=== PATIENT | female | born 1950 | race Caucasian/White ===

== ENCOUNTER 2017-04-24 15:21 | Inpatient (IN) ==
[2017-04-24] MEDS ORDERED: SALINE FLUSH 10ml SYRINGE IVF PRN (15:33)
[2017-04-24] MEDS: NITROGLYCERIN 0.4 MG SUBLINGUAL TABLET SL PRN ×2 (15:43→16:17)
--- NOTE | 2017-04-24 16:10 | Emergency Department Report ---
Chest Pain HPI - General Chief Complaint: Chest Pain Stated Complaint: cp,soa Time Seen by Provider: 04/24/17 15:24 Source: patient, EMS, RN notes reviewed, old records reviewed, other (Pts oncologist) Mode of arrival: EMS Limitations: no limitations - History of Present Illness HPI narrative: 66yo woman presents to the ER by EMS today for evaluation of CP. Pt had abrupt onset of chest pain and SOA appx 30min prior to presentation. Pt has numerous comorbidities including hemolytic anemia, cold agglutinin, positive ANCA, and eosinophilic granulomatous disease (with vasculitis). Pt was given her first dose of Rituxin today (100mg) around 1300 today. Pt then drove home to [place], but had abrupt onset of chest pain and SOA. Pts brother attempted to drive her to the ER, but she made him kiln puller at the EMS station in [place], due to her sx. EMS brought pt to the ER. MD complaint: chest pain Occurred At: home Onset (ago): minute(s) Duration: constant Onset: during rest Pain location: substernal, left chest Severity: moderate Severity scale (1-10): 7 Quality: tightness, sharp Relieving factors: nitroglycerin Exacerbating factors: exertion Context: new medications Associated symptoms: diaphoresis, dyspnea Nitro Today: 0.4 mg x 2, provided by ED Treatments prior to arrival chest pain: none - Related Data On Oral Contraceptives: No Home Medications Medication Instructions Recorded Confirmed Allopurinol [Zyloprim] 300 mg PO PM 11/11/16 04/24/17 Loratadine [Allergy Relief] 20 mg PO DAILY 11/11/16 04/24/17 Cyanocobalamin (Vitamin B-12) 2,500 mcg PO DAILY 03/09/17 04/24/17 [Vitamin B12] Cholecalciferol (Vitamin D3) 2,000 unit PO DAILY 04/24/17 04/24/17 [Vitamin D3] Pantoprazole Tab [Protonix Tab] 1 tab PO ACL 04/24/17 04/24/17 PredniSONE [Deltasone] 20 mg PO DAILY 04/24/17 04/24/17 guaiFENesin [Mucinex] 600 mg PO DAILY 04/24/17 04/24/17 Allergies Allergy/AdvReac Type Severity Reaction Status Date / Time salicylates Allergy Intermediate Hypertensio Verified 04/24/17 15:41 n azithromycin Allergy Mild Diarrhea Verified 04/24/17 15:41 aspirin Allergy Unknown ELEVATED Verified 04/24/17 15:41 BLOOD PRESSURE ciprofloxacin Allergy Unknown HIVES Verified 04/24/17 15:41 Influenza Virus Vaccines Allergy Unknown Verified 04/24/17 15:41 Review of Systems All systems: reviewed and negative except as stated Cardiovascular: Reports: as per HPI, chest pain, dyspnea on exertion. Denies: palpitations, orthopnea, edema, syncope, paroxysmal nocturnal dyspnea Respiratory: Reports: as per HPI, dyspnea. Denies: cough, wheezes, hemoptysis, stridor PFSH Patient Stated Medical History Migraine Yes Other HEENT Yes: Frequent sinus infections Heart Murmur Yes Hypertension Yes Pneumonia Yes: Hx Other Respiratory Yes: Seasonal allergies Hx Kidney Stones Yes Hx Urinary Tract Infection Yes Anemia Yes Blood Disorders Yes Other Hematologic Yes: AutoImmune Disorders Anesthesia Reactions Yes: Difficult to arouse Chemotherapy Yes: Leukemia, [facility] Medical History (Last Reviewed 11/06/16 @ 17:37 by ASA Morgan) Hypertension (Acute Medical) Kidney stones (Acute Medical) Medical History Updates: Eosinophilic granuloma. Vasculitis (Positive ANCA). Cold agglutinin Surgical History: *Lithotripsy. *Kidney Stones Basket Retrieval Family History: Family History (Last Reviewed 11/06/16 @ 17:38 by ASA Morgan) Father Diabetes - Social History Smoking status: Never smoker Physical Exam - Limitations Limitations: no limitations - General General appearance: alert, in no apparent distress - Normal Exams: Head:: Normocephalic without trauma Eyes:: Pupils are PERRLA w/ EOMI, No scleral icterus, irritation, or foreign bodies noted ENMT:: No facial trauma, nasal exudates, pharyngeal erythema, or exudates are noted Neck:: Full range of motion, without adenopathy Lymphatic:: No lymphadenopathy Musculoskeletal:: No tenderness, or deformity noted Integumentary:: No rashes, hives, or bruising noted Neurological:: Patient is alert, and oriented Psychiatric:: Patient exhibits, appropriate attention - Chest Chest inspection: Present: normal inspection, symmetric chest wall rise. Absent : tenderness, rash - Respiratory Respiratory exam: Present: normal lung sounds bilaterally. Absent: respiratory distress, wheezes, prolonged expiratory phase, crackles - Cardiovascular Cardiovascular exam: Present: regular rate, normal rhythm, normal heart sounds, +S1, +S2. Absent: systolic murmur, diastolic murmur, +S3, +S4 - Abdominal Exam Abdominal exam: Present: soft. Absent: distention, tenderness, guarding, rebound, rigidity Course - Consultations Consultation #1: Hospitalist: Will admit pt for observation. Time: 17:21 Vital Signs Temperature 98.7 F 04/24/17 15:32 Pulse Rate 113 H 04/24/17 15:32 Respiratory Rate 24 04/24/17 15:32 Pulse Oximetry 95 04/24/17 15:32 Temperature 98.7 F 04/24/17 15:32 Pulse Rate 108 H 04/24/17 15:45 Respiratory Rate 24 04/24/17 15:32 Pulse Oximetry 93 04/24/17 15:45 Chest Pain - MDM Narrative Medical decision making narrative: Pt with CP and SOA after administration of biologic chemo. Pt cont to have pain ; no significant new abns or changes. Hospitalist will admit for observation overnight. Pt c/o worsening pain, despite nitro. Pt was offered morphine for pain control. Pt refused the morphine, stating "that doesn't do anything for me." Pt, after a short delay, then threatened, as an employee of [facility] and 'friend of Flores [the [employer]] ' to make a formal complaint. Pt offered fentanyl for her pain. Pt agreed to fentanyl for pain control. - Differential Diagnosis Likely: fracture of rib, pneumothorax, stable angina, unstable angina pectoris, atypical chest pain, costochondritis, chest pain - Medical Records Data Attestation: I reviewed the patient's medical records. - Lab Data Attestation: I reviewed the patient's lab results. Result diagrams: 04/24/17 15:31 04/24/17 15:31 Lab Results 04/24/17 04/24/17 04/24/17 Range/Units 15:31 15:31 16:16 WBC 75.1 H* D (4.5-11.0) T/MM3 RBC 1.90 L (4.00-5.20) M/MM3 Hgb 7.0 L (12-16) GM/DL Hct 22.2 L (36-46) % MCV 116.8 H (80-100) UM3 MCH 36.8 H (26-34) UUG MCHC 31.5 (31-37) GM/DL RDW Std Deviation 85.2 H (36.9-50.2) FL Plt Count 43 L (130-400) T/MM3 MPV Not performed Immature Gran % (Auto) Not performed Neut % (Auto) Not performed Lymph % (Auto) Not performed [place] % (Auto) Not performed Eos % (Auto) Not performed Baso % (Auto) Not performed Neut # (Auto) Not performed Lymph # (Auto) Not performed [place] # (Auto) Not performed Eos # (Auto) Not performed Baso # (Auto) Not performed Abs Immat Gran (auto) Not performed Neutrophils % (Manual) 68.0 H (33-66) % Band Neutrophils % 11.0 H (0-6) % Lymphocytes % (Manual) 5.0 L (23-45) % Monocytes % (Manual) 1.0 (0-9.0) % Eosinophils % (Manual) 3.0 (0-4) % Metamyelocytes % 6.0 H (0-0) % Myelocytes % 6.0 H (0-0) % Neutrophils # (Manual) 51.1 H (1.8-7.7) T/MM3 Band Neutrophils # 8.3 T/MM3 Lymphocytes # (Manual) 3.8 (1-4.8) T/MM3 Monocytes # (Manual) 0.8 (0-0.8) T/MM3 Eosinophils # (Manual) 2.3 H (0-0.5) T/MM3 Metamyelocytes # 4.5 T/MM3 Myelocytes # 4.5 T/MM3 Polychromasia 1+ Poikilocytosis 1+ Anisocytosis 2+ Macrocytosis 1+ Stomatocytes 1+ RBC Morph Comment Abnormal D-Dimer 494 H (0-230) NG/ML Turbidity < 20 (0-20) Sodium 144 (134-144) MEQ/L Potassium 4.1 (3.6-5) MEQ/L Chloride 105 (98-107) MEQ/L Carbon Dioxide 24 (22-30) MEQ/L Anion Gap 15 (5-15) MEQ/L BUN 25.0 H (7-17) MG/DL Creatinine 1.2 (0.7-1.2) MG/DL GFR Calculation 45 BUN/Creatinine Ratio 21 (6-26) RATIO Glucose 181 H (65-110) MG/DL Calculated Osmolality 286 H (261-280) MOSM/KG Calcium 9.8 (8.4-10.2) MG/DL Total Bilirubin 2.00 H (0.20-1.30) MG/DL Icterus Index < 2 (0-7) AST 18 (14-36) U/L ALT 27 (9-52) U/L Alkaline Phosphatase 67 (38-126) U/L Lactate Dehydrogenase 726 H (313-618) U/L Troponin I 0.035 (0-0.12) ng/ml B-Natriuretic Peptide 2380 H (0-175) pg/mL Total Protein 8.2 (6.3-8.2) G/DL Albumin 5.0 (3.5-5.0) G/DL Globulin 3.2 (2.4-3.6) G/DL Albumin/Globulin Ratio 1.6 (1.1-2.2) RATIO Lipase 120 (23-300) U/L Specimen Hemolysis < 15 (0-25) - Radiology Data Attestation: I reviewed the patient's radiology results. CXR: FINDINGS: Interval development of worsening interstitial opacities bilaterally with persistent hypoinflation. No pneumothorax. Heart size and mediastinal contours are stable. Pulmonary vascularity is indistinct. Impression: New interstitial prominence could be due to pulmonary edema or pneumonitis from drug reaction. - EKG Data EKG #1 EKG attestation: Yes: I reviewed and interpreted this EKG. EKG shows normal: sinus rhythm, axis, intervals, QRS complexes, ST-T waves Rate: tachycardia Disposition Clinical Impression: Chest pain Qualifiers: Chest pain type: unspecified Qualified Code(s): R07.9 - Chest pain, unspecified Dyspnea Qualifiers: Dyspnea type: unspecified Qualified Code(s): R06.00 - Dyspnea, unspecified Disposition: To [facility] Print Language: Mohawk Prescriptions: No Action Loratadine [Allergy Relief] 20 mg PO DAILY Cyanocobalamin (Vitamin B-12) [Vitamin B12] 2,500 mcg PO DAILY Pantoprazole Tab [Protonix Tab] 1 tab PO ACL Cholecalciferol (Vitamin D3) [Vitamin D3] 2,000 unit PO DAILY guaiFENesin [Mucinex] 600 mg PO DAILY Allopurinol [Zyloprim] 300 mg PO PM PredniSONE [Deltasone] 20 mg PO DAILY Referrals: Hairston,Jcarlos S, MD [Family Provider] - Time of Disposition: 17:49 - Seen By: physician
--- NOTE | 2017-04-24 16:19 | XRay Report ---
INDICATION: Dyspnea PROCEDURE: CHEST 2-VIEWS UPRIGHT (PA & LAT) Encounter: Initial COMPARISON: April 24, 2017 at 1250 FINDINGS: Interval development of worsening interstitial opacities bilaterally with persistent hypoinflation. No pneumothorax. Heart size and mediastinal contours are stable. Pulmonary vascularity is indistinct. Impression: New interstitial prominence could be due to pulmonary edema or pneumonitis from drug reaction. .
[2017-04-24] MEDS ORDERED: MORPHINE SULFATE 2mg INJECTION IVP ONE (17:36)
[2017-04-24] MEDS ORDERED: FentaNYL 100 MCG/2 ML INJECTION IVP ONE (18:10)
[2017-04-24] MEDS ORDERED: FentaNYL 100 MCG/2 ML INJECTION ONE (18:15)
[2017-04-24] MEDS ORDERED: ONDANSETRON 4 MG/2 ML INJECTION IVP PRN (19:44)
[2017-04-24] MEDS ORDERED: SENNA + DOCUSATE TABLET PO PRN (19:44)
[2017-04-24] MEDS ORDERED: HYDROMORPHONE 2 MG/ML INJECTION IVP PRN (19:44)
[2017-04-24] MEDS ORDERED: ALBUTEROL 2.5mg/3ml (0.083%) NEB AEROSOL PRN (19:50)
[2017-04-24] MEDS ORDERED: ACETAMINOPHEN 325 MG TABLET PO PRN (19:50)
[2017-04-24] MEDS ORDERED: NITROGLYCERIN 0.4 MG SUBLINGUAL TABLET SL PRN (19:50)
[2017-04-24] MEDS ORDERED: ALLOPURINOL 300 MG TABLET PO SCH (20:00)
--- NOTE | 2017-04-24 20:48 | Cardiology Consult Note ---
<Ivory Mcgregor - Last Filed: 04/27/17 12:06> History of Present Illness Consult date: 04/24/17 Requesting physician: Rea Heller Consult reason: chest pain Chief complaint: chest pain History of present illness: Baltazar is a 66 year old female who presented to the ED by EMS today for evaluation of CP. She reportedly had abrupt onset of chest pain and SOA approximately 30 minutes prior to presentation. She has numerous comorbidities including hemolytic anemia, cold agglutinin, positive ANCA, and eosinophilic granulomatous disease (with vasculitis). She was given her first dose of Rituxin (100mg) around 1300 today. She reportedly then drove home to [place], but had abrupt onset of chest pain and SOA. Her brother attempted to drive her to the ED, but she made him well puller head at the EMS station in [place], due to her symptoms. EMS brought her to the ED. She is examined in her room on Medical. She reports severe chest pain, with dyspnea. She denies nausea, diaphoresis or dizziness. Review of Systems - Constitutional Constitutional: Absent: chills, fatigue, fever(s) - EENMT Eyes: Absent: change in vision Balance: Absent: vertigo Mouth/Throat: Absent: sore throat, scratchy throat - Cardiovascular Cardiovascular: Present: chest pain, heart murmur. Absent: palpitations, syncope, dyspnea on exertion, edema Rhythm: Absent: abnormal rhythm Vascular: Absent: pedal edema - Respiratory Respiratory: Absent: cough, dyspnea - Gastrointestinal Gastrointestinal: Absent: constipation, diarrhea, nausea, vomiting - Genitourinary Genitourinary: Absent: dysuria - Integumentary/Breasts Integumentary: Absent: rash - Neurological Neurological: Absent: dizziness - Endocrine Endocrine: Absent: palpitations PFSH Patient Stated Medical History Cerebrovascular Accident Yes: 3 small cva's Other HEENT Yes: Frequent sinus infections Heart Murmur Yes Hypertension Yes Pneumonia Yes: Hx Other Respiratory Yes: Seasonal allergies Hx Kidney Stones Yes Hx Renal Disease Yes: Kidney stones, maybe disease Hx Urinary Tract Infection Yes Anemia Yes Blood Disorders Yes: as below not otherwise specified w/ eosinophilia Other Hematologic Yes: AutoImmune Disorders, Myeloproliferative neoplasm Anesthesia Reactions Yes: Difficult to arouse Clinic Medical History (Last Reviewed 11/06/16 @ 17:37 by ASA Morgan) Hypertension (Acute Medical) Kidney stones (Acute Medical) Medical History Updates: Eosinophilic granuloma. Vasculitis (Positive ANCA). Cold agglutinin Surgical History: *Lithotripsy. *Kidney Stones Basket Retrieval Family History: Family History (Last Reviewed 11/06/16 @ 17:38 by Jenni Perez Kathe) Father Diabetes - Social History Smoking status: Never smoker Substance use type: does not use Alcohol intake frequency: does not drink Housing: house Household members: none Current occupational status: employed Current occupation: [employer] Current residence: Apartment/Private Home Medications Home Medications Medication Instructions Recorded Confirmed Type Allopurinol [Zyloprim] 300 mg PO PM 11/11/16 04/24/17 History Loratadine [Allergy Relief] 20 mg PO DAILY 11/11/16 04/24/17 History Cyanocobalamin (Vitamin B-12) 2,500 mcg PO DAILY 03/09/17 04/24/17 History [Vitamin B12] Cholecalciferol (Vitamin D3) 2,000 unit PO DAILY 04/24/17 04/24/17 History [Vitamin D3] Pantoprazole Tab [Protonix Tab] 1 tab PO ACL 04/24/17 04/24/17 History PredniSONE [Deltasone] 20 mg PO DAILY 04/24/17 04/24/17 History guaiFENesin [Mucinex] 600 mg PO DAILY 04/24/17 04/24/17 History Allergies Allergy/AdvReac Type Severity Reaction Status Date / Time salicylates Allergy Intermediate Hypertensio Verified 04/24/17 15:41 n azithromycin Allergy Mild Diarrhea Verified 04/24/17 15:41 aspirin Allergy Unknown ELEVATED Verified 04/24/17 15:41 BLOOD PRESSURE ciprofloxacin Allergy Unknown HIVES Verified 04/24/17 15:41 Influenza Virus Vaccines Allergy Unknown Verified 04/24/17 15:41 Exam Vital signs: Temperature 98.7 F 04/24/17 15:32 Pulse Rate 105 H 04/24/17 18:45 Respiratory Rate 24 04/24/17 15:32 Blood Pressure 146/64 H 04/24/17 18:45 Pulse Oximetry 94 04/24/17 18:45 - Constitutional mild distress, well nourished, cooperative - Routine HEENT Exam Head: Present: normocephalic ENT: Present: mucous membranes moist - Routine Neck Exam Absent: JVD, carotid bruit - Routine Chest/Breast/Axilla Exam Chest wall: Absent: tenderness - Routine Respiratory Exam Present: CTA bilaterally. Absent: rales, wheezes - Routine Cardiovascular Exam Present: RRR, murmur, rubs - Routine Abdominal Exam Present: soft, normoactive bowel sounds - Routine Extremities Exam Present: edema - Routine Skin Exam Present: intact, dry, warm - Routine Neurological Exam Present: alert, oriented X3 - Routine Psychiatric Exam Present: normal affect, normal thought process Results 04/25/17 02:18 04/25/17 02:18 - Imaging and Cardiology Echo: report reviewed Imaging & Cardiology Narrative: Date of Exam: 03/19/17 Type of Exam(s): US echo doppler complete DATE OF PROCEDURE March 19, 2017 This is a two-dimensional echo with spectral Doppler, color-flow and M-mode. It was obtained in a patient with murmur. Left atrium is dilated. Left ventricle end-diastolic dimension is normal. Left ventricle wall thickness is normal. LV systolic function is normal with ejection fraction of 65%. Right atrium is normal. Right ventricle is normal. Aortic root dimension is normal. Mitral annulus is calcified. Mitral valve leaflets are normal with mild mitral regurgitation. Aortic valve appears to be normal. Tricuspid valve shows mild tricuspid regurgitation with moderate pulmonary hypertension with estimated pulmonary artery systolic pressure of 47. Pulmonary valve shows no pulmonary insufficiency. There is no pericardial effusion. IMPRESSION 1. Normal LV systolic function with ejection fraction of 65%. 2. Left atrial dilation. 3. Mitral annulus calcification with mild mitral regurgitation. 4. Mild tricuspid regurgitation with moderate pulmonary hypertension with estimated pulmonary artery systolic pressure of 47. 04/27/17 12:07 04/27/17 12:08 Date of Exam: 04/24/17 Ordering Provider: Matthias Peterson DO Type of Exam(s): XR chest 2V Reason for Exam(s): Dyspnea INDICATION: Dyspnea PROCEDURE: CHEST 2-VIEWS UPRIGHT (PA & LAT) Encounter: Initial COMPARISON: April 24, 2017 at 1250 FINDINGS: Interval development of worsening interstitial opacities bilaterally with persistent hypoinflation. No pneumothorax. Heart size and mediastinal contours are stable. Pulmonary vascularity is indistinct. Impression: New interstitial prominence could be due to pulmonary edema or pneumonitis from drug reaction. EKG interpretations - EKG EKG results cardiology: sinus rhythm EKG shows: tachycardia - Blocks, axis, hypertrophy, ST abn Repolarization changes or abnormalities: nonspecific abnormality, ST segment, and/or T wave Assessment and Plan - Assessment and Plan (1) Chest pain Status: Acute Acute dyspnea, chest pain, and hypoxia following initial administration of Rituxan. Probable drug reaction. - Cannot exclude cardiac involvement with ischemia. - EKG with ST changes, repeat in am - Trend serial troponin. - Obtain echo as patient has a rub on exam. (2) Dyspnea Status: Acute (3) Hypoxia Status: Acute (4) Sinus tachycardia Status: Acute (5) Autoimmune hemolytic anemia Status: Chronic - Assessment and Plan Chest pain: Acute dyspnea, chest pain, and hypoxia following initial administration of Rituxan. Probable drug reaction. - Cannot exclude cardiac involvement with ischemia. - EKG with ST changes, repeat in am - Trend serial troponin. - Obtain echo as patient has a rub on exam. Thank you for allowing us to participate in the care of this patient. Hospital Course Summary Disclaimer: The visit summary below is not to be considered part of the above Progress Note. <Benjamin Guillen - Last Filed: 04/29/17 09:30> FORMERLY [facility], [facility]–1983 Patient Stated Medical History Cerebrovascular Accident Yes: 3 small cva's Other HEENT Yes: Frequent sinus infections Heart Murmur Yes Hypertension Yes Pneumonia Yes: Hx Other Respiratory Yes: Seasonal allergies Hx Kidney Stones Yes Hx Renal Disease Yes: Kidney stones, maybe disease Hx Urinary Tract Infection Yes Anemia Yes Blood Disorders Yes: as below not otherwise specified w/ eosinophilia Other Hematologic Yes: AutoImmune Disorders, Myeloproliferative neoplasm Anesthesia Reactions Yes: Difficult to arouse Clinic Medical History (Last Reviewed 11/06/16 @ 17:37 by ASA Morgan) Hypertension (Acute Medical) Kidney stones (Acute Medical) Family History: Family History (Last Reviewed 11/06/16 @ 17:38 by ASA Morgan) Father Diabetes Exam Vital signs: Temperature 97.7 F 04/25/17 07:28 Pulse Rate 101 H 04/25/17 07:28 Respiratory Rate 18 04/25/17 07:28 Blood Pressure 127/62 04/25/17 07:28 Pulse Oximetry 85 L 04/25/17 09:07 Results 04/25/17 02:18 04/25/17 02:18 Assessment and Plan - Attestation Attestation Narrative: 04/29/17 09:30 Recommendation After examining the patient I agree with the above assessment. I am involved in the formulation of the patient's plan of care. - Assessment and Plan (1) Chest pain Status: Acute (2) Dyspnea Status: Acute (3) Hypoxia Status: Acute (4) Sinus tachycardia Status: Acute (5) Autoimmune hemolytic anemia Status: Chronic Hospital Course Summary Disclaimer: The visit summary below is not to be considered part of the above Progress Note.
--- NOTE | 2017-04-24 21:37 | History & Physical Report ---
History of Present Illness Date: 04/24/17 Chief complaint: chest pain, dyspnea HPI: Mrs. Marcus 66-year-old female with recent diagnosis of p-ANCA positive eosinophilic granulomatosis. 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 She is under the care of Dr. Hernandez, Dr. Conklin, Dr. Walker, in addition to oncologists in [place]. She's previously been treated with hydroxyurea which was discontinued. 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 In light of the recently identified vasculitis she was started on Rituxan with first dose given a Dr. Hernandez's office today. She received 10 mg of dexamethasone prior to Rituxan. Patient reports that she felt fine prior to drug administration and felt fine for one to 2 hours after she returned home. She abruptly developed substernal chest pain which she describes as a tight sensation associated with dyspnea and pleuritic pain. There was no associated cough, radiation, wheezing, cough, or nausea. She reports diaphoresis. Her brother drove her to EMS station in [place] where she reports they felt she was in obvious respiratory distress and initiated oxygen therapy. She was transferred to the ER in [place]. Nitroglycerin was administered 3 times with minimal change in pain but pain/dyspnea subsequently fully resolved after administration of IV fentanyl and she reports she feels completely back to normal at this time. Initial troponin was minimally elevated at 0.035 and she is admitted for further assessment. Review of Systems All systems PM: 10-point ROS was reviewed, no additional remarkable complaints except (patient reports frequent nasal congestion, a heart murmur, tremor intermittently, and recent development of petechiae on the lower extremities. 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 Vasculitis (Positive ANCA). Cold agglutinin Surgical History: *Lithotripsy. *Kidney Stones Basket Retrieval. Tonsillectomy. Bone marrow biopsy Family History: Family History (Last Reviewed 11/06/16 @ 17:38 by Jenni Perez Kathe) Father Diabetes Family History Updates: Father-, coronary artery disease and kidney stones. Mother-, hypertension, neuropathy. 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 Jcarlos Hairston Heme-Onc-Dr. Shawn Hernandez Nephrology-Dr. Karla De La Torre Rheumatology-Dr. Walker Alternate decision maker/DPOA-brother Donny Woods Full code Medications Home Medications Medication Instructions Recorded Confirmed Type Allopurinol [Zyloprim] 300 mg PO PM 11/11/16 04/24/17 History Loratadine [Allergy Relief] 20 mg PO DAILY 11/11/16 04/24/17 History Cyanocobalamin (Vitamin B-12) 2,500 mcg PO DAILY 03/09/17 04/24/17 History [Vitamin B12] Cholecalciferol (Vitamin D3) 2,000 unit PO DAILY 04/24/17 04/24/17 History [Vitamin D3] Pantoprazole Tab [Protonix Tab] 1 tab PO ACL 04/24/17 04/24/17 History PredniSONE [Deltasone] 20 mg PO DAILY 04/24/17 04/24/17 History guaiFENesin [Mucinex] 600 mg PO DAILY 04/24/17 04/24/17 History Allergies Allergy/AdvReac Type Severity Reaction Status Date / Time salicylates Allergy Intermediate Hypertensio Verified 04/24/17 15:41 n azithromycin Allergy Mild Diarrhea Verified 04/24/17 15:41 aspirin Allergy Unknown ELEVATED Verified 04/24/17 15:41 BLOOD PRESSURE ciprofloxacin Allergy Unknown HIVES Verified 04/24/17 15:41 Influenza Virus Vaccines Allergy Unknown Verified 04/24/17 15:41 Exam Vital Signs: Temperature 98.7 F 04/24/17 15:32 Pulse Rate 104 H 04/24/17 19:24 Respiratory Rate 24 04/24/17 19:24 Blood Pressure 146/64 H 04/24/17 18:45 Pulse Oximetry 96 -2 L 04/24/17 19:24 EXAM: General-NAD, alert, cooperative, fluent speech, generalized pallor HEENT-PERRL, EOMI without nystagmus, conjugate gaze, conjunctiva clear, sclera anicteric, facial structures symmetric, oropharynx clear, neck supple and without adenopathy Lungs-respirations nonlabored, good airflow, crackles at the bases L>R Cardiac-regular rhythm, S1-S2, soft systolic flow murmur along the left sternal border Abd-soft, nontender, without palpable mass, bowel sounds present Ext-without edema Skin-generalized pallor as noted above, extensive vasculitis change with faint erythema on the lower extremities greatest around the ankles Neuro-cranial nerves 3-12 intact, motor tone/power normal, minor tremor in the hands bilaterally, sensation intact to light touch Psych-euthymic, calm Telemetry Rhythm: Sinus Rhythm Results - Labs CBC & Chem 7: 04/24/17 15:31 04/24/17 15:31 Labs: S68 B11 L5 M1 E3 Meta6 Myelo6 D-dimer 494 Bilirubin 2.0, LDH 726 ProBNP 2380, troponin 0.035 - ECG Data Tracing #1 I reviewed this ECG and interpreted as documented below: (sinus rhythm, no acute ST/T-wave changes) - Imaging and Cardiology Chest x-ray Status: image reviewed by me (interstitial prominence increased from chest x- ray earlier in the day.) Assessment and Plan (1) Chest pain Current visit: Yes Status: Acute (2) Dyspnea Current visit: Yes Status: Acute Assessment and Plan: Impression: Chest pain Dyspnea Hypoxia, new Eosinophilic granulomatosis/p-ANCA vasculitis Autoimmune hemolytic anemia Vasculitis with cerebellar and splenic infarcts Sinus tachycardia Plan: Patient is admitted with acute dyspnea, chest pain, and hypoxia following initial administration of Rituxan. Probable drug reaction. Over the patient has known vasculitis and cannot exclude cardiac involvement with ischemia. Serial troponins to be obtained. D-dimer slightly elevated however this is chronically elevated and not felt to be clinically significant acutely in conjunction with presentation. Titrate oxygen as status permits; reassess need for diuresis tomorrow if ongoing hypoxia. Dr. Guillen consulted and case reviewed with him. Echocardiogram scheduled. Dr. Hernandez consulted for hematologic concerns. Hemoglobin 7.0 however autoimmune and transfusion contraindicated. Home medications continued. - Physician Narrative Narrative: Date: 04/24/17 Time: 2127 Hospital Course Summary Disclaimer: The visit summary below is not to be considered part of the above Progress Note. Hospital Course: 04/24/17 Patient is admitted with acute dyspnea, chest pain, and hypoxia following initial administration of Rituxan. Probable drug reaction. Over the patient has known vasculitis and cannot exclude cardiac involvement with ischemia. Serial troponins to be obtained. D-dimer slightly elevated however this is chronically elevated and not felt to be clinically significant acutely in conjunction with presentation. Titrate oxygen as status permits; reassess need for diuresis tomorrow if ongoing hypoxia. Dr. Guillen consulted and case reviewed with him. Echocardiogram scheduled. Dr. Hernandez consulted for hematologic concerns. Hemoglobin 7.0 however autoimmune and transfusion contraindicated.
[2017-04-24 23:34] VITALS: RESP 18
[2017-04-25 07:30] VITALS: BP 127/62; PULSE 101; TEMP 97.7
[2017-04-25] MEDS ORDERED: LORATADINE ODT 10 MG TABLET PO SCH (07:30)
[2017-04-25] MEDS ORDERED: PredniSONE 20 MG TABLET PO SCH (08:00)
[2017-04-25] MEDS ORDERED: GUAIFENESIN LA 600 MG TABLET PO SCH (09:00)
[2017-04-25] MEDS ORDERED: CYANOCOBALAMIN (B-12) 500mcg TABLET PO SCH (09:00)
[2017-04-25 09:08] VITALS: O2SAT 85
--- NOTE | 2017-04-25 11:25 | Consult Note ---
Oncology HPI - Data of Consult Patient: known to practice within the last 3 years Consult date: 04/25/17 Requesting Physician: Rea Heller MD Primary Care Provider: Jcarlos Hairston MD Family Provider: Jcarlos Hairston MD - Consult Narrative Reason for consult: Hemolytic anemia History of present illness: History of Present Illness --09/2015: Leukoerythroblastic change in differential --10/2016: Leukocytosis with leukoerythroblastic findings. Significant eosinophilia without basophilia. --11/11/16: Bone marrow biopsy showing packed marrow with myeloproliferative disease. 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 --03/19/17: MRI showing 3 small punctate areas suggesting recent infarcts in last 1 to 3 weeks. Toya positive for compliment but no IgG compatible with cold agglutinin. Hypercoaguable workup negative except positive anticardiolipin antibody IgM at 16.4. --03/23/17: Peripheral blood for pathology review to Dr. Walker, --03/26/17: Discontinue Hydrea due to side effects. --03/31/17: Follow up and bone marrow biopsy with Dr. Shaun Taylor. This showed myeloproliferative neoplasm with normal cytogenetics. Both peripheral blood and bone marrow showed no evidence of cytogenetic abnormalities including BCRABL, FI P1 L1/PDGFRA. PDGFRB, Caliretin, MPL, chromosome 13, chromosome 20, trisomy 8, trisomy 9, after consultation with Dr. Carnes, he recommended the use of Vidaza or Dacogen myeloproliferative neoplasm. However when her pANCA came back positive, he agreed with holding therapy and further evaluation with rheumatology. -- 04/03/17: pANCA positive at 692 --04/15/17: Dr. Conklin for renal insufficiency and positive ANCA. Recommended biopsy cancelled due anemia. --04/23/17: Dr. Shona Walker for positive P-ANCA with stroke and splenic infarct , eosinophilia and hemolytic anemia. Patient had progressive worsening of anemia over the month of March with hemoglobin dropping from a steady state of a half down to 8.1 7.6 and it was 6.8 on 04/24/17. Reticulocyte count has increased from 6% range in September to 9.3% and 10.9% on 04/24/16. She has had worsening renal insufficiency with creatinine in the 1.2-1.1 range through November, December and in February she increased to 1.3 1.4. She is seen by Dr. dario Noriega Red cell Elvis her urine. She is seen by Dr. 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 For her hemolytic anemia she received 100 mg fixed dose Rituxan on 04/24/16 is been on 20 mg a day of prednisone. She presented to the ER approximately 4 hours after having received her Rituxan with severe chest pain. She has had progressive increase in troponin over the last 24 hours. Requested repeat of her pANCA which was done on 04/24/16 and was decreased at 297. Review of Systems - Constitutional Constitutional: Present: fatigue - EENT Eyes: Absent: loss of vision, pain Nose: Present: obstruction. Absent: nosebleeds Mouth/Throat: Present: dry mouth. Absent: sores - Cardiovascular Cardiovascular: Present: chest pain (yesterday evening it is gone away after she had fentanyl in the emergency room). Absent: palpitations - Respiratory Respiratory: Present: cough (mild dry), chest congestion - Gastrointestinal Gastrointestinal: Absent: abdominal pain, diarrhea, nausea, vomiting - Genitourinary Genitourinary: Absent: dysuria, flank pain, hematuria - Musculoskeletal Musculoskeletal: Absent: arthralgias, muscle cramps - Integumentary/Breasts Integumentary: Present: pruritus (lower extremities), rash - Neurological Neurological: Absent: headache(s), lack of coordination, numbness - Psychiatric Psychiatric: Present: other (agitation and increased anxiety when on high-dose steroids, 40 mg per day) - Hematologic/Lymphatic Hematologic/Lymphatic: Present: anemia, easy bleeding PFSH Patient Stated Medical History Cerebrovascular Accident Yes: 3 small cva's Other HEENT Yes: Frequent sinus infections Heart Murmur Yes Hypertension Yes Pneumonia Yes: Hx Other Respiratory Yes: Seasonal allergies Hx Kidney Stones Yes Hx Renal Disease Yes: Kidney stones, maybe disease Hx Urinary Tract Infection Yes Anemia Yes Blood Disorders Yes: as below not otherwise specified w/ eosinophilia Other Hematologic Yes: AutoImmune Disorders, Myeloproliferative neoplasm Anesthesia Reactions Yes: Difficult to arouse Clinic Medical History (Last Reviewed 11/06/16 @ 17:37 by ASA Morgan) Hypertension (Acute Medical) Kidney stones (Acute Medical) Medical History Updates: Eosinophilic granuloma. Vasculitis (Positive ANCA). Cold agglutinin. Ocular migraine Surgical History: *Lithotripsy. *Kidney Stones Basket Retrieval. Tonsillectomy. Bone marrow biopsy Family History: Family History (Last Reviewed 11/06/16 @ 17:38 by ASA Morgan) Father Diabetes Family history unknown, Father [Father: (CVA (Age at diagnosis: 68 years)); ], Mother [Mother: (Age at : 88 years); ], 33 relatives -starvation in 1930s; - Social History Smoking status: Never smoker Alcohol intake frequency: does not drink Household members: none Social history: Medications Home Medications Medication Instructions Recorded Confirmed Type Allopurinol [Zyloprim] 300 mg PO PM 11/11/16 04/24/17 History Loratadine [Allergy Relief] 20 mg PO DAILY 11/11/16 04/24/17 History Cyanocobalamin (Vitamin B-12) 2,500 mcg PO DAILY 03/09/17 04/24/17 History [Vitamin B12] Cholecalciferol (Vitamin D3) 2,000 unit PO DAILY 04/24/17 04/24/17 History [Vitamin D3] Pantoprazole Tab [Protonix Tab] 1 tab PO ACL 04/24/17 04/24/17 History PredniSONE [Deltasone] 20 mg PO DAILY 04/24/17 04/24/17 History guaiFENesin [Mucinex] 600 mg PO DAILY 04/24/17 04/24/17 History Allergies Allergy/AdvReac Type Severity Reaction Status Date / Time salicylates Allergy Intermediate Hypertensio Verified 04/24/17 15:41 n azithromycin Allergy Mild Diarrhea Verified 04/24/17 15:41 aspirin Allergy Unknown ELEVATED Verified 04/24/17 15:41 BLOOD PRESSURE ciprofloxacin Allergy Unknown HIVES Verified 04/24/17 15:41 Influenza Virus Vaccines Allergy Unknown Verified 04/24/17 15:41 Exam Vital signs: Temperature 97.7 F 04/25/17 07:28 Pulse Rate 101 H 04/25/17 07:28 Respiratory Rate 18 04/25/17 07:28 Blood Pressure 127/62 04/25/17 07:28 Pulse Oximetry 85 L 04/25/17 09:07 - Constitutional no acute distress, thin - Routine HEENT Exam Head: Present: normocephalic Eye: Present: EOMI, PERRL Throat: normal inspection, other (dry mouth) - Routine Neck Exam Present: supple. Absent: lymphadenopathy, thyromegaly - Routine Respiratory Exam Present: dyspnea, CTA bilaterally - Routine Cardiovascular Exam Present: RRR, murmur (soft systolic) - Routine Abdominal Exam Present: soft, non distended, non tender - Routine Extremities Exam Absent: cyanosis, clubbing - Routine Back/Spine/Pelvis Exam Back/Spine: Present: full ROM. Absent: muscle spasm - Routine Skin Exam Present: rash (Mary extremity rash) - Routine Neurological Exam Present: alert, CN II-XII intact - Routine Psychiatric Exam Present: normal affect Oncology Results - Labs CBC & Chem 7: 04/25/17 02:18 04/25/17 02:18 Labs: Short CBC 04/25/17 Range/Units 02:18 WBC 43.6 H* D (4.5-11.0) T/MM3 Hgb 6.1 L D (12-16) GM/DL Hct 20.6 L (36-46) % Plt Count 40 L (130-400) T/MM3 BMP 04/25/17 02:18 Sodium 143 Potassium 4.2 Chloride 105 Carbon Dioxide 26 BUN 25.0 H Creatinine 1.4 H D Glucose 117 H Calcium 9.7 Cardiac Enzymes 04/24/17 04/25/17 04/25/17 Range/Units 20:34 02:18 09:07 Troponin I 1.000 H D 4.300 H D 4.800 H (0-0.12) ng/ml Liver Function 04/25/17 Range/Units 02:18 Albumin 4.6 (3.5-5.0) G/DL Laboratory Tests 03/19/17 04/24/17 04/24/17 10:35 07:43 15:31 WBC Hgb Haptoglobin 6 L Creatinine Lactate Dehydrogenase 726 H B-Natriuretic Peptide 2380 H p-ANCA 294 H 04/25/17 04/25/17 02:18 02:18 WBC 43.6 H* D Hgb 6.1 L D Haptoglobin Creatinine 1.4 H D Lactate Dehydrogenase B-Natriuretic Peptide p-ANCA Assessment and Plan Assessment and Plan: 1. 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 She presented in October 2016 with peripheral blood made up of bone marrow cells with myelocytes metamyelocytes, nucleated red blood cells and no blasts. There was mild anemia and mild thrombocytopenia. She had a very similar leukoerythroblastosis in September 2015 when she was in the ER. Her white count at that time was only 14K. 11/14/16: Bone marrow compatible with Myeloproliferative disorder. Will start Hydrea and follow. Appointment with Dr. Taylor for second opinion. WBC on of 55.1 with platelets of 75K. 11/21/16. She began Hydrea 500 mg twice daily 1 week ago. She is tolerated that well. It has improved her white blood cell count. WBC is 36.5 with hemoglobin of 10.5 and platelets of 60K. Differential showed neutrophils 31%, bands 4%, lymphs 9%, monos 14%, eosinophils 39%, and metamyelocytes 3%. She is tolerating Hydrea well will continue present therapy and see patient back in 2 weeks. She will see Mónica Alexandre in 1 week. Ultrasound to evaluate spleen size that showed splenomegaly. Spleen was 15.8 cm in size. In addition there was a small area of hypoechoic lesion lateral aspect of the spleen measured 4 x 2.9 x 3.7 cm. Etiology was indeterminate. Will obtain CT scan without contrast for evaluation. 12/05/16: She is tolerating the Hydrea well. White count has decreased to 20, 800 with platelets of 58,000. Eosinophils are still elevated at 34% with an absolute eosinophil count of 7100. LDH is decreased at 828. Will continue Hydrea and have weekly CBCs. See patient back in [address] scan shows lesions with the spleen of uncertain etiology. Will follow. 12/26/16: HGB-10.0, HCT-31.5, PLT-47, eosinophils%-26, LDH-801. She started Hydrea in October and counts have improved. She is tolerating Hydrea one pill daily without side effects. Will continue present therapy. 02/05/17: WBC- 22.4, HGB-9.3, PLT51. On 01/30/17 PLT was 42. We will continue Hydrea to control counts. Eosinophilia persists. 03/16/17: Lab from 03/13/17 WBC- 20.2, HGB 8.3, PLT 44. Syncopal episode and CT brain obtained. Reviewed images with Dr. Canales. Could be small areas of infarct. Will get MRI. CT shows spleen is stable but areas of infarcts from prior scan are improving. Will continue to hold Hydrea and evaluate disease process. Can have infarcts from MDS. 03/23/17: Hypercoagulable work up was negative for factor V Leiden and antithrombin III deficiency. Prothrombin gene mutation was negative. DIC panel was negative. Steroids started for hemolytic anemia. Bili is lower at 1.8 and LDH is higher at 880 and reticulocyte count is 8 %. WBC has increased dramatically with neutrophilic leukocytosis. This is probably steroids but increase in myelocytes noted. Will send peripheral smear for evaluation. Will discuss work up of antibody that is probably IgM on cells with Dr. Walker . Will see back in 4 days. IgM anticardiolipin antibody is positive in weak category. Decrease Prednisone to 40 mg daily and start Hydrea at 1 cap every other day. 03/26/17: We are repeating myeloproliferative neoplasm CML, FISH profile. We are drawing eosinophilia fish profile to include FGFR1, PDGFRA, PDGFRB today. She has gone back on Hydrea and has difficulty with dizziness and visual abnormalities after taking the Hydrea. We will stop the Hydrea as her counts have really been fairly stable over the last 10 days without Hydrea. White blood cell count today is 67.9 with a hemoglobin of 9.1 and platelet count of 60 ,000 that is improving. Differential shows 54% segs, 7% bands, 4% metamyelocytes , 2% myelocytes, 10% eosinophils, no basophils. Creatinine is slightly higher at 1.4. Bilirubin is better at 1.4. LDH is slightly higher at 1012. Reticulocyte count is 9.6%. Will decrease Prednisone from 40 mg to 20 mg daily. Hold Hydrea. I feel she would benefit from another bone marrow biopsy. Will schedule this be done with Dr. Carnes in conjunction with consultation regarding recent thrombosis and next direction of therapy. In addition to evaluate the eosinophilia we will obtain a DAVIE, rheumatoid factor, angiotensin- converting enzyme level, IgE, repeat the serum protein electrophoresis and obtain C-ANCA and P-ANCA. 04/03/17: She was seen by Dr. Carnes and bone marrow performed. It is compatible with myeloproliferative disorder. He has recommended starting Dacogen and education provided. Flow cytogenetics and FISH have been negative. Reviewed labs and C and P-ANCA did not cross interface. P-ANCA markedly positive at 662. This could be contributing to the eosinophilia, thrombosis and hemolytic anemia. Will get Rheumatology consult and increase Prednisone to 40 mg daily. Follow up in one week. 04/10/17: She did not tolerate 40 mg per day of prednisone. It was associated with inability to sleep and increased anxiety along with personality changes. We decreased to 20 mg daily yesterday. Will continue with 20 mg daily. She will see Dr. De La Torre and Dr. Walker for evaluation of the positive P-ANCA. Counts are currently stable; however, platelets have decreased to 34,000. Will continue observation and steroids. Currently on no suppressive cytotoxic therapy for myeloproliferative process. 04/21/17: WBC stable with WBC of 48K today. 14% EOS with AEC of 6.72. Stable on prednisone 20 mg per day. Platelets better at 52K. Will continue to follow. All cytogenetics have been normal. 04/24/17: She has seen Dr. De La Torre and Dr. Walker. Dr. De La Torre felt she had red cell cast. Dr. 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 She has cerebral infarction, splenic infarction both of which are compatible with vasculitis, red cell casts, positive P-ANCA and symptoms of asthma. She is currently on prednisone. Would consider higher doses of prednisone if she would tolerate. In addition, she has a cold agglutinin hemolytic anemia. See below as we are starting Rituxan today. Up to Date: DIAGNOSTIC CRITERIA A number of different sets of criteria for the diagnosis of EGPA have been proposed [7,8,40,45,63]. The classifications used most commonly are the [place] [employer] (ACR, preferred) and the [place] criteria [8,40]. The ACR has established six criteria for the classification of EGPA in a patient with documented vasculitis [40]. The presence of four or more of these criteria had a sensitivity of 85 percent and a specificity of 99.7 percent for EGPA: -Asthma (a history of wheezing or the finding of diffuse high pitched wheezes on expiration) -Greater than 10 percent eosinophils on the differential leukocyte count -Mononeuropathy (including multiplex) or polyneuropathy -Migratory or transient pulmonary opacities detected radiographically -Paranasal sinus abnormality -Biopsy containing a blood vessel showing the accumulation of eosinophils in extravascular areas (picture 3A-B) The Dulac criteria include asthma, peak peripheral blood eosinophilia in excess of 1500 cells/microL, and systemic vasculitis involving two or more extra -pulmonary organs [8]. In this classification, all three criteria must be met for a diagnosis of EGPA. A question that arises in the categorization of patients with suspected EGPA is how to classify patients with asthma and blood eosinophilia >1500 cells/microL and/or =10 percent of leukocytes, but without definite evidence of vasculitis outside the lungs, nose, and sinuses. One proposal is to reserve the designation of EGPA for patients with asthma and blood eosinophils =1500 cells/ microL (1.5 G/L) and/or =10 percent of leukocytes AND one or more of the following [11]: -Definite polyangiitis: Biopsy showing necrotizing vasculitis, biopsy showing necrotizing or crescentic glomerulonephritis, alveolar hemorrhage, palpable purpura, or myocardial infarction due to proven coronaritis -Definite surrogates for vasculitis: Hematuria associated with red cell casts or >10 percent dysmorphic erythrocytes; hematuria with 2+ proteinuria; leukocytoclastic vasculitis/eosinophilic infiltration of an arterial wall on biopsy -Mononeuritis or mononeuritis multiplex -ANCA and systemic manifestations (eg, myocarditis, pericarditis, peripheral neuropathy, other renal disease, abdominal pain) This proposal suggests creating a new category called hypereosinophilic asthma with systemic manifestations for patients with asthma, hypereosinophilia (= 1500 cells/microL and/or =10 percent of leukocytes), and any systemic manifestation, but without ANCA, definite polyangiitis, a surrogate of polyangiitis, or mononeuritis. Acute chest pain after having Rituxan yesterday. Elevated troponin. Nonspecific changes on EKG. These changes could be related to thrombosis, vasculitis, Rituxan, or underlying coronary artery disease. As she is had cranial infarcts this probably represents angiitis and I would recommend treating with steroids. Platelet count is low which makes anticoagulation very difficult. Renal function is worsening. With creatinine today of 1.4. In addition she has hypoxemia of uncertain etiology and would benefit from evaluation with CT scan. With her renal insufficiency would recommend that this be done without contrast. P-ANCA on 04/24/17 was 297 2. Anemia. Hemoglobin of 10.9 with MCV of 100. Will do anemia workup. 11/14/16: HGB 10.8. B12 greater than 1000 and Homocysteine elevated at 34. MMA elevated at .0.42. This suggests B12 deficiency but will not treat until MPN under control. Haptoglobin low and LDH high that fit with above. EPO elevated at 41. Retic is 6%. Increased IgG and IgM. No monoclonal proteins. 11/21/16: HGB-10.5. Intrinsic factor antibody was negative and then indeterminate. Will go ahead and start oral B12. Will continue to follow. 12/05/16: Hemoglobin slightly lower at 9.6 gm. 12/26/16: Hemoglobin-10.0 This is stable on Hydrea. 02/05/17: Hemoglobin-9.3. This is slowly declining. We will continue to follow. 03/16/17: Hemoglobin-8.3 will work up for auto immune hemolysis. Haptoglobin low in past at 20 and retic elevated. 03/23/17: Hemoglobin-8.6 Slightly better with steroids. 03/26/17: Hemoglobin-9.1. Repeat haptoglobin on 03/19/17 was 6. YOJANA was negative for IgG but suspected positive for complement. Workup was drawn to identify antibody through [place] today. Finding of cold agglutinin. 04/03/17: Hemoglobin-8.5. Stable. Will increase Prednisone to 40 mg daily. 04/10/17: Hemoglobin-8.1. Reticulocyte count 9.3%. Bilirubin 2.0 with LDH of 756. SGOT is normal at 16. Will continue prednisone 20 mg daily and follow-up. 04/21/17: Hemoglobin-7.2. This is most consistent with cold agglutinin disease. Encouraged to avoid cold and keep house warm. YOJANA positive for compliment most consistent IgM antibody that is fixing compliment. Therapy includes steroids. Will use fixed dose Rituxan 100 mg weekly X 4 to suppress antibody production. Discussed with Dr. Carnse today and he concurs with the Rituxan. Will plan on starting on Thursday. 04/24/17: Hemoglobin-6.8. LDH is better. Reticulocyte count is increased. This is most likely hemolytic but could also be related with blood loss. Will Rituxan today. Informed consent has been obtained. Up to Date: Low-dose rituximab plus prednisone A small prospective study investigated the efficacy, safety, and response duration of reduced doses of rituximab (100 mg fixed dose weekly for four doses) along with a short course of prednisone ( initial dose 1 mg/kg/day for 30 days, with a slow taper thereafter) as primary or secondary treatment in 13 patients with cold AIHA [42,43]. Complete plus partial response rates were 85 percent at six months, with relapse-free survival rates of 85, 67, and 57 percent at 6, 12, and 24 months, respectively. 04/25/17: Hemoglobin 6.0 3. Chronic renal insufficiency with GFR of 40. Will evaluate uric acid value. Most recent lab with Creatinine of 1.1 with GFR of 50, currently improved. 11/21/16: CR- 1.1, EGFR- 50 12/05/16: CR- 1.1, GFR- 50 12/26/16: CR- 1.2, GFR-45 Creatinine has increased slightly. Will continue to follow. 02/05/17: CR-1.2, GFR-45. 03/16/17: CR-1.2, GFR-45. 03/23/17: CR-1.3, GFR-41 03/26/17: CR-1.4, GFR-38. This is increased slightly. Will continue to follow closely. 04/03/17: CR-1.4, GFR-38. Question if increase is related to P-ANCA. Will get nephrology consultation. 04/10/17: CR-1.3, GFR-41. This is slightly improved. Nephrology consultation pending. 04/21/17: CR-1.19, GFR 45. 04/24/17: CR-1.3, GFR-41. Remained stable. 04/25/17: CR-1.4, GFR-38. Slightly worse. 4. Hyperuricemia 11/07/16: uric acid-9.3, started Allopurinol. 11/14/16: uric acid-4.5, 11/21/16: uric acid-4.1 responding well to Allopurinol. 12/05/16: uric acid-3.2. 12/26/16: uric acid-3.5 This has responded to allopurinol. 02/05/17: uric acid-3.8. 03/16/17: uric acid- 4.6 03/26/17: uric acid-4.7. 04/03/17: uric acid-5.1. 04/10/17: uric acid-8.8. Increased since we stopped the allopurinol 1 week ago 04/24/17: uric acid-8.7. Restarted allopurinol 5. Splenic lesions. Could be secondary to disease. Will follow. 12/26/16: No symptoms or pain referred to spleen area. 02/05/17: No pain in the splenic area. We will continue to follow. 03/16/17: CT shows improvement in areas of infarct. 04/10/17: No new pain. 04/21/17: No pain. 04/24/17: No pain. 04/25/17: No pain in LUQ 6. Heart murmur. Will get Echocardiogram. 12/26/16: Echocardiogram of 12/16/16 with normal ejection fraction of 70%. Mild mitral regurgitation and mild tricuspid regurgitation. Moderate pulmonary hypertension and trace of pulmonary insufficiency. 02/05/17: Heart murmur continues. 03/16/17: Heart murmur is stable. 03/23/17: Repeat echo not helpful for etiology. 7. Small posterior cerebellar artery distribution infarcts of uncertain etiology . Could be related to what was causing spleen infarcts and this has improved. Negative hypercoagulable workup with questionable anticardiolipin antibody IgM of 16.4. Negative factor V Leiden and negative prothrombin 2210 gene mutation. 04/10/17. No further syncope or symptoms of stroke. 04/21/17: No further symptoms. 04/25/17: This probably represents vasculitis with 3 isolated lesions. 8. Rash lower extremities. Macular. 04/24/17: Rash still present bilaterally. 04/25/17: Rash is improved slightly. 9. Thrombocytopenia Megakaryocytes are identified in bone marrow. She has splenomegaly therefore hypersplenism is most likely the etiology for this process. Platelets have been between 34 and 50,000 since 04/03/17. They are 40,000 today. Anticoagulation does have increased risk but with the most likely etiology being hypersplenism would consider anticoagulation if absolutely necessary. 10. Elevated troponin. Etiology could be thrombus within coronary artery or polyangiitis, will appreciate Dr. Latham's input. We'll increase steroids to 100 mg of Solu-Medrol every 8 hours. Patient does not tolerate steroids well and becomes irritable anxious and has difficulty with 40 mg daily prednisone. 11. Hypoxemia. 04/24/17 O2 sat was 95% on room air in office. When she arrived in the emergency room she was in the 80s. She had an episode of O2 sat this morning of 85. Would consider CT chest to evaluate for infiltrates. Recommendations Transferred to [facility] hospitalist service. Discussed with Dr. Latham's [employer] Cardiology consult was Dr. Latham Nephrology consult with Dr. De La Torre Rheumatology consult with Dr. Shona Walker Pulmonary consult with Dr. Andre Aponte Steroids. Would consider 100 mg to 125 mg every 8 hours because of her poor tolerance to steroids in the past. Obtain Cold agglutinin titer, Repeat Type and Screen For her cold agglutinin hemolytic anemia she has had Rituxan yesterday, we will keep room warm, use warm IV fluids and would not use any refrigerated products IV. Up to date: Avoidance of cold The most useful single therapy in cold agglutinin disease is avoidance of cold. This means that the patient must dress warmly even in the summer. Warm shoes, stockings, and gloves are essential, and many patients use a face scarf, ear muffs, warm hats, and other clothing to maintain warmth. If possible, patients living in [facility] should try to live the coldest months in more temperate regions. Avoidance of cold demands constant vigilance ( eg, avoiding cold rooms or environments, immersion of hands and other body parts in cold water, drinking of cold liquids). Rituximab-containing regimens A number of reports have indicated the usefulness of the monoclonal anti-CD20 antibody rituximab, alone or in combination, in those with severe hemolysis, with response rates as high as 76 to 83 percent [2-4,35-43]. While durations of remission using this agent are often short, patients may respond to successive courses of treatment following relapse [2]. -Rituximab with or without interferon In an uncontrolled prospective study, 14 of 27 patients with cold agglutinin disease, 15 of whom had been previously treated, responded to a single course of rituximab (375 mg/m2 IV on days 1, 8, 15, and 22), and 6 of 10 responded to re-treatment with this agent plus interferon (rituximab as per first course plus interferon 5 million units SQ three times per week starting two weeks before retreatment with rituximab) [40] . The overall response rate was 54 percent. The median increase in hemoglobin levels in responders was 4.0 g/dL, with median times to response and duration of response of 1.5 and 11 months, respectively. Treatment was well-tolerated; response could not be predicted using pretreatment hematologic, immunologic, or histologic parameters. -Low-dose rituximab plus prednisone A small prospective study investigated the efficacy, safety, and response duration of reduced doses of rituximab (100 mg fixed dose weekly for four doses) along with a short course of prednisone ( initial dose 1 mg/kg/day for 30 days, with a slow taper thereafter) as primary or secondary treatment in 13 patients with cold AIHA [42,43]. Complete plus partial response rates were 85 percent at six months, with relapse-free survival rates of 85, 67, and 57 percent at 6, 12, and 24 months, respectively. She had this started 04/24/17 -Rituximab plus fludarabine Excellent results in have been obtained from the combination of rituximab and fludarabine in an uncontrolled prospective study in 29 patients with symptomatic disease, 10 of whom were previously unresponsive to treatment with single agent rituximab. Treatment was a combination of intravenous rituximab at regular doses (375 mg/m2 on days 1, 29, 57, and 85) plus oral fludarabine (40 mg/m2 on days 1 through 5, 29 through 34, 57 through 61, and 85 through 89) [41]. Complete and overall response rates were noted in 21 and 76 percent, respectively, with an estimated median response duration in excess of 66 months. Grade 4 hematologic toxicity ( absolute neutrophil count <500/microL) occurred in four patients. Dose reduction or discontinuation of fludarabine occurred in 13 patients (45 percent) . Plasmapheresis Plasmapheresis can be used as adjunctive treatment to physically remove the IgM antibody from the plasma, leading to a reduction in the rate of hemolysis [60]. This procedure is effective when whole-body exchange techniques are performed, since the antibody, being IgM, is confined to the intravascular space. Plasmapheresis should be performed in as warm an environment as possible. (See "Therapeutic apheresis (plasma exchange or cytapheresis): Indications and technology".) The effect of plasmapheresis is relatively short lived as the half-life for replacement of the protein is only five days. It is therefore difficult to use successfully for chronic treatment. There are, however, several indications for plasmapheresis in the treatment of cold agglutinin disease: -It can be used to reduce severe hemolysis, particularly at initial presentation when the syndrome is due to an infection. In these cases, the thermal amplitude of the agglutinin (ie, the highest temperature at which antibody and antigen are able to interact) may be high, approaching room and/or body temperature, and special precautions may be needed to successfully accomplish the treatment [61]. -It can be used to prepare the patient for surgery. In this setting, plasmapheresis should be performed no more than one to two days prior to the surgery [62]. -In some patients, the symptoms of acrocyanosis are sufficiently severe to require acute relief by plasmapheresis [63].-?The neuropathic symptoms of those patients with anti-Pr antibodies and polyneuropathy can be relieved by plasmapheresis [64]. Special precautions Special precautions need to be taken for the patient with cold agglutinin disease in order to avoid the consequences of exposure to cold temperatures.- -Ideally, all patients in whom hypothermic surgical procedures are contemplated should be routinely tested preoperatively for the presence of cold agglutinins. Exposure of large blood-containing areas to cold temperatures may result in marked hemolysis and other complications unless precautions are taken [65]. Appropriate changes in cardiopulmonary bypass and myocardial management plans should be made in patients who test positive [66]. As examples, the patient may undergo plasmapheresis just prior to surgery (carefully performed to avoid exposure to cold), and forced warm air may be used on the operative field [67]. (See 'Plasmapheresis' above.) -Space heaters may be necessary to keep room temperature at adequate levels. -Intravenous solutions and previously refrigerated blood products must have their temperature raised before infusion. Warming coils for such use are commercially available. Red cell preparations should not be heated above 40C, as thermal hemolysis may ensue. -Use of cooling blankets to reduce fever in patients with cold agglutinins may result in worsening of hemolysis as well as peripheral gangrene [68]. With these precautions, patients can undergo these procedures with relative little morbidity [69].
[2017-04-25] MEDS ORDERED: PANTOPRAZOLE 40 MG TABLET PO SCH (11:30)
--- NOTE | 2017-04-25 15:01 | Discharge Summary ---
Discharge Information Date of admission: 04/24/17 18:30 Anticipated date of discharge: 04/25/17 Attending Physician: Rea Heller MD Primary care physician: Jcarlos Hairston MD Consults: Dr. Guillen-human resources operations manager. Dr. 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 History of Present Illness HPI: Mrs. Marcus 66-year-old female with recent diagnosis of p-ANCA positive eosinophilic granulomatosis. 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 She is under the care of Dr. Hernandez, Dr. Conklin, Dr. Walker, in addition to oncologists in [place]. She's previously been treated with hydroxyurea which was discontinued. 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 In light of the recently identified vasculitis she was started on Rituxan with first dose given a Dr. Hernandez's office today. She received 10 mg of dexamethasone prior to Rituxan. Patient reports that she felt fine prior to drug administration and felt fine for one to 2 hours after she returned home. She abruptly developed substernal chest pain which she describes as a tight sensation associated with dyspnea and pleuritic pain. There was no associated cough, radiation, wheezing, cough, or nausea. She reports diaphoresis. Her brother drove her to EMS station in [place] where she reports they felt she was in obvious respiratory distress and initiated oxygen therapy. She was transferred to the ER in [place]. Nitroglycerin was administered 3 times with minimal change in pain but pain/dyspnea subsequently fully resolved after administration of IV fentanyl and she reports she feels completely back to normal at this time. Initial troponin was minimally elevated at 0.035 and she is admitted for further assessment. MD: 04/25/17 the patient was interviewed by me today. She is quite pale but states she always is. She denies any complaints to me and all and actually would like to go home. Objective Vital signs: Temperature 97.7 F 04/25/17 07:28 Pulse Rate 101 H 04/25/17 07:28 Respiratory Rate 18 04/25/17 07:28 Blood Pressure 127/62 04/25/17 07:28 Pulse Oximetry 85 L 04/25/17 09:07 Height/Weight/BMI: Weight 80.2 kg Comments: MD: 04/25/17 Gen: alert and oriented. NAD Skin: warm and dry and extremely pale HEENT: NC/AT PERRL, EOMI, Sclera, lids and conjunctiva wnl. MMM. OP clear. Neck: No JVD, Carotids 2+ without bruits Lungs: clear. No rales, rhonchi or wheezes CV: regular. systolic murmur Abd: soft. +BS. NT/ND MS: No edema. Good strength and ROM Neuro: No focal deficits Hospital Course This is a general summary of the patient's hospital course. For more details refer to the complete medical record. 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 Probable drug reaction. Over the patient has known vasculitis and cannot exclude cardiac involvement with ischemia. Serial troponins to be obtained. D-dimer slightly elevated however this is chronically elevated and not felt to be clinically significant acutely in conjunction with presentation. Titrate oxygen as status permits; reassess need for diuresis tomorrow if ongoing hypoxia. Dr. Guillen consulted and case reviewed with him. Echocardiogram scheduled. Dr. Hernandez consulted for hematologic concerns. Hemoglobin 7.0 however autoimmune and transfusion contraindicated. Home medications continued. 04/25/17- Transfer/Discharge As per Dr Hernandez- Transferred to [facility] hospitalist service. Discussed with Dr. Guillen's MAC ARTIST Cardiology consult was Dr. Latham Nephrology consult with Dr. De La Torre Rheumatology consult with Dr. Shona Walker Pulmonary consult with Dr. Andre Aponte Steroids. Would consider 100 mg to 125 mg every 8 hours because of her poor tolerance to steroids in the past. Obtain Cold agglutinin titer, Repeat Type and Screen 04/25/17 patient was discussed with Dr. Hernandez. He spoke with Dr. Guillen's MAC ARTIST as the patient's troponin continues to climb. She is not having any chest discomfort and she has no EKG evidence of acute MT or even coronary ischemia. 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 Nonetheless it was felt that she would be best served with transfer to [place]. Arrangements for subsequently made at . Hospital course: 04/24/17 Patient is admitted with acute dyspnea, chest pain, and hypoxia following initial administration of Rituxan. Probable drug reaction. Over the patient has known vasculitis and cannot exclude cardiac involvement with ischemia. Serial troponins to be obtained. D-dimer slightly elevated however this is chronically elevated and not felt to be clinically significant acutely in conjunction with presentation. Titrate oxygen as status permits; reassess need for diuresis tomorrow if ongoing hypoxia. Dr. Guillen consulted and case reviewed with him. Echocardiogram scheduled. Dr. Hernandez consulted for hematologic concerns. Hemoglobin 7.0 however autoimmune and transfusion contraindicated. Time spent with patient: discharge greater than 30 minutes Discharge Plan - Discharge Disposition Discharge Date: 04/25/17 Disposition: 02 To [facility] Acute Care *Condition: Stable Reason For Visit (Visit label in EMR): acute drug rxn,eosinophilic granulitis - Discharge Medications *Discharge Medications: New Acetaminophen [Tylenol] 650 mg PO QID PRN tab PRN Reason: Discomfort Hydromorphone [Dilaudid] 0.5 mg IVP Q2H PRN vial PRN Reason: Pain Nitroglycerin [Nitrostat] 0.4 mg SL Q5MIN3 PRN tab PRN Reason: Chest Pain Ondansetron Inj [Zofran] 4 mg IVP Q6H PRN vial PRN Reason: Nausea &/Or Vomiting Senna + Docusate [Senna Plus Tablet] 1 tab PO BID PRN tab PRN Reason: Constipation Albuterol Neb (0.083%) [Proventil Neb (0.083%)] 5 mg AEROSOL Q2H PRN each PRN Reason: Shortness Of Air/Wheezing Continue Loratadine [Allergy Relief] 20 mg PO DAILY Cyanocobalamin (Vitamin B-12) [Vitamin B12] 2,500 mcg PO DAILY Pantoprazole Tab [Protonix Tab] 1 tab PO ACL Cholecalciferol (Vitamin D3) [Vitamin D3] 2,000 unit PO DAILY guaiFENesin [Mucinex] 600 mg PO DAILY Allopurinol [Zyloprim] 300 mg PO PM PredniSONE [Deltasone] 20 mg PO DAILY - Discharge Packet/Instructions *Diet: NPO *Activity: Bed rest *Pain Management/Treatment: IV Dilaudid *Wound Care: na Additional Instructions: na *Expected Signs/Symptoms: na *Notify Physician if: na *During Business Hours Contact: Transfering to [facility] *After Business Hours Contact: na *Pending Lab/Results: No Pending Lab - Referrals/Follow Up - Patient Handouts Physician Narrative - Narrative Attestation Narrative: Date: 04/25/17 Time: 1455 MD: 04/25/17 the patient was interviewed and examined by me. The patient was discussed with Dr. Hernandez. My interview and physical exam are documented above. Her labs, notes and imaging were reviewed. I agree with MAC ARTIST assessment and plan.
== END 2017-04-25 14:11 | disposition short-term general hospital (02) | DRG 313 ==
LOC: ED 15:21 → MED 18:30
PROVIDERS: ADMIT Internal Medicine; ATTEND Internal Medicine